=== PATIENT | female | born 1960 | race American Indian/Alaskan Native ===

== ENCOUNTER 2017-07-21 19:01 | Emergency (ER) | payer OTHER ==
[2017-07-21 19:08] VITALS: BP 156/87
== END 2017-07-21 23:53 | disposition left against medical advice (07) ==
LOC: ED 19:01
DX: R06.02 Shortness of breath (principal); R05 Cough; Z53.21 Procedure and treatment not carried out due to patient leaving prior to being seen by health care provider

== ENCOUNTER 2018-08-16 10:14 | Outpatient (CLI) | payer OTHER ==
[2018-08-16 10:47] LABS: Basophils # (Auto) 0.1 K/mm3 (0.0-0.1); Basophils % (Auto) 1.2 % (0.0-1.8); Eosinophils # (Auto) 0.1 K/mm3 (0.0-0.4); Eosinophils % (Auto) 1.5 % (0.0-4.3); Hematocrit 42.9 % (30.3-42.9); Lymphocytes # (Auto) 2.7 K/mm3 (1.2-5.4); Lymphocytes % (Auto) 42.9 % (13.4-35.0); Mean Corpuscular HGB Conc 33 % (30-34); Mean Corpuscular Volume 84 fl (79-97); Monocytes # (Auto) 0.5 K/mm3 (0.0-0.8); Monocytes % (Auto) 7.3 % (0.0-7.3); Platelet Count 306 K/mm3 (140-440); Red Blood Count 5.09 M/mm3 (3.65-5.03); Red Cell Distribution Width 16.2 % (13.2-15.2)
[2018-08-16 11:11] LABS: Alanine Aminotransferase 11 units/L (7-56); Albumin 3.7 g/dL (3.9-5); BUN/Creatinine Ratio 14; Blood Urea Nitrogen 14 mg/dL (7-17); Calcium 9.6 mg/dL (8.4-10.2); Hemolysis Index 6
[2018-08-16 11:33] LABS: Bacteria,Urine 4+ /HPF (Negative); Hyaline Casts,Urine 21 /LPF
[2018-08-16 11:38] LABS: RBC,Urine > 182.0 /HPF (0.0-6.0)
[2018-08-16 11:39] LABS: WBC,Urine > 182.0 /HPF (0.0-6.0)
[2018-08-16 11:58] LABS: Color,Urine Yellow (Yellow)
[2018-08-16 11:59] LABS: Bilirubin,Urine Negative (Negative); Blood,Urine SM (Negative); Protein,Urine >500 mg/dL (Negative); Urobilinogen,Urine < 2.0 mg/dL (<2.0)
== END 2018-08-16 10:15 | disposition home or self-care (01) ==
LOC: LAB 10:14
PROVIDERS: ATTEND Internal Medicine
DX: K85.00 Idiopathic acute pancreatitis without necrosis or infection (principal); N39.0 Urinary tract infection, site not specified; E78.00 Pure hypercholesterolemia, unspecified; I10 Essential (primary) hypertension; Z90.710 Acquired absence of both cervix and uterus
CPT/HCPCS: 36415; 80053; 81001; 82150; 83690; 85025

== ENCOUNTER 2018-08-16 13:53 | Emergency (ER) | payer OTHER ==
--- NOTE | 2018-08-16 14:17 | Event Note ---
ED Screening Note Date of service: 08/16/18 Time: 14:13 ED Screening Note: 58 y/o female seen by her PCP for abd pain since thursday Sent to er for addmission for pancreatic lipase 112 on out patient labs. This initial assessment/diagnostic orders/clinical plan/treatment(s) is/are subject to change based on patients health status, clinical progression and re- assessment by fellow clinical providers in the ED. Further treatment and workup at subsequent clinical providers discretion. Patient/guardian urged not to elope from the ED as their condition may be serious if not clinically assessed and managed. Initial orders include:
[2018-08-16] MEDS ORDERED: NACL 0.9% 1000 ML 1,000 ML IV ONE (16:14)
[2018-08-16] MEDS ORDERED: TORADOL IV ONE (16:14)
[2018-08-16] MEDS ORDERED: BENTYL IM ONE ×2 (16:14→17:07)
[2018-08-16] MEDS ORDERED: ZOFRAN IV ONE (16:14)
[2018-08-16] MEDS ORDERED: PEPCID IV ONE (16:14)
--- NOTE | 2018-08-16 16:46 | Emergency Department Report ---
<MEREDITH FALCON - Last Filed: 08/16/18 16:42> ED N/V/D HPI - General Chief complaint: Abdominal Pain Stated complaint: ABD PAIN Time Seen by Provider: 08/16/18 16:13 Source: patient Mode of arrival: Ambulatory Limitations: No Limitations - History of Present Illness Initial comments: Patient is a 58-year-old female who is presenting with 5 days of nausea vomiting and epigastric discomfort. Patient was sent from Dr. Shine's office to be evaluated. Patient states that since last Thursday she's been unable to keep anything down except for above post ache which about hour later she did vomit. Patient states the epigastric pain as a 10 out of 10 in severity at its worst. There is no radiation. She denies any diarrhea cough, congestion and sore throat or neck stiffness. Pain is crampy and burning. Dr. Shine's office today she had ultrasound to rule out biliary colic and it was unremarkable. Her laboratory studies that were done at the office show that she had a white blood cell count of 6.3 hemoglobin of 14 platelet count of 306 her chemistries were relatively unremarkable except for glucose of 231. Patient is diabetic. Lipase was 112 which was a nonspecific slight elevation of the lipase. Bilirubin and transaminases were normal - Related Data Home Medications Medication Instructions Recorded Confirmed Last Taken Albuterol Sulfate [Proair 90 mcg IH BID PRN 10/30/17 10/30/17 Unknown Respiclick] Aspirin [Adult Low Dose Aspirin EC] 1 tab PO QDAY 10/30/17 10/30/17 10/29/17 Exenatide Microspheres [Bydureon 2 mg SUB-Q QWEEK 10/30/17 10/30/17 10/26/17 Pen] Furosemide [Lasix TAB] 40 mg PO QDAY 10/30/17 10/30/17 10/29/17 Lisinopril 20 mg PO QDAY 10/30/17 10/30/17 10/29/17 Previous Rx's Medication Instructions Recorded Last Taken Type Dicyclomine [Bentyl] 20 mg PO QID PRN #20 tablet 08/16/18 Unknown Rx Famotidine [Pepcid] 20 mg PO BID #60 tablet 08/16/18 Unknown Rx Nitrofurantoin [place]/M-Cryst 100 mg PO Q12HR 5 Days #10 capsule 08/16/18 Unknown Rx [Macrobid CAP] Ondansetron [Zofran Odt] 4 mg PO Q8HR PRN #14 tab.rapdis 08/16/18 Unknown Rx Sucralfate [Carafate] 1 gm PO Q6HR #5 tablet 08/16/18 Unknown Rx Allergies Allergy/AdvReac Type Severity Reaction Status Date / Time oxycodone Allergy Itching Verified 08/16/18 13:54 ED Review of Systems Comment: All other systems reviewed and negative ED Past Medical Hx - Past Medical History Hx Hypertension: Yes Hx Diabetes: Yes (type 2) - Surgical History Additional Surgical History: left shoulder , right foot , Hysterectomy, C- section x 1 - Social History Smoking Status: Never Smoker Substance Use Type: None - Medications Home Medications: Home Medications Medication Instructions Recorded Confirmed Last Taken Type Albuterol Sulfate [Proair 90 mcg IH BID PRN 10/30/17 10/30/17 Unknown History Respiclick] Aspirin [Adult Low Dose Aspirin EC] 1 tab PO QDAY 10/30/17 10/30/17 10/29/17 History Exenatide Microspheres [Bydureon 2 mg SUB-Q QWEEK 10/30/17 10/30/17 10/26/17 History Pen] Furosemide [Lasix TAB] 40 mg PO QDAY 10/30/17 10/30/17 10/29/17 History Lisinopril 20 mg PO QDAY 10/30/17 10/30/17 10/29/17 History Dicyclomine [Bentyl] 20 mg PO QID PRN #20 tablet 08/16/18 Unknown Rx Famotidine [Pepcid] 20 mg PO BID #60 tablet 08/16/18 Unknown Rx Nitrofurantoin [place]/M-Cryst 100 mg PO Q12HR 5 Days #10 capsule 08/16/18 Unknown Rx [Macrobid CAP] Ondansetron [Zofran Odt] 4 mg PO Q8HR PRN #14 tab.rapdis 08/16/18 Unknown Rx Sucralfate [Carafate] 1 gm PO Q6HR #5 tablet 08/16/18 Unknown Rx ED Physical Exam - General Limitations: No Limitations General appearance: alert, in no apparent distress - Head Head exam: Present: atraumatic, normocephalic - Eye Eye exam: Present: normal appearance, PERRL, EOMI - ENT ENT exam: Present: mucous membranes moist - Neck Neck exam: Present: normal inspection - Respiratory Respiratory exam: Present: normal lung sounds bilaterally. Absent: respiratory distress, wheezes, rales, rhonchi - Cardiovascular Cardiovascular Exam: Present: regular rate, normal rhythm. Absent: systolic murmur, diastolic murmur, rubs, gallop - GI/Abdominal GI/Abdominal exam: Present: soft, tenderness (patient with pain on palpation in epigastrium. She did show some very mild guarding when palpating this region only.), guarding, normal bowel sounds. Absent: distended, rebound, rigid - Extremities Exam Extremities exam: Present: normal inspection - Back Exam Back exam: Present: normal inspection - Neurological Exam Neurological exam: Present: alert, oriented X3 - Psychiatric Psychiatric exam: Present: normal affect, normal mood - Skin Skin exam: Present: warm, dry, intact, normal color. Absent: rash ED Disposition Clinical Impression: Abdominal pain Qualifiers: Abdominal location: epigastric Qualified Code(s): R10.13 - Epigastric pain Nausea & vomiting Qualifiers: Vomiting type: unspecified Vomiting Intractability: non-intractable Qualified Code(s): R11.2 - Nausea with vomiting, unspecified Disposition: DC- TO HOME OR SELFCARE Condition: Stable Instructions: Acute Nausea and Vomiting (ED), Abdominal Pain (ED) Additional Instructions: Please see medication as prescribed. Please drink plenty of fluids. Please follow up with your primary care doctor in the next 2-3 days. Return to the emergency room for any new or worsening symptoms. Prescriptions: Dicyclomine [Bentyl] 20 mg PO QID PRN #20 tablet PRN Reason: pain Sucralfate [Carafate] 1 gm PO Q6HR #5 tablet Nitrofurantoin [place]/M-Cryst [Macrobid CAP] 100 mg PO Q12HR 5 Days #10 capsule Famotidine [Pepcid] 20 mg PO BID #60 tablet Ondansetron [Zofran Odt] 4 mg PO Q8HR PRN #14 tab.rapdis PRN Reason: Nausea And Vomiting Referrals: Deangelo BARBA MD [Staff Physician] - 2-3 Days Forms: Accompanied Note, Work/School Release Form(ED) Print Language: ARMENIAN <LINN YUENAmmy - Last Filed: 08/17/18 05:09> ED Review of Systems ROS: Stated complaint: ABD PAIN Other details as noted in HPI ED Course Vital Signs 08/16/18 08/16/18 08/16/18 14:13 16:53 21:14 Temperature 98.1 F 97.5 F L Pulse Rate 98 H 78 Respiratory 18 18 18 Rate Blood Pressure 165/79 Blood Pressure 146/80 [Left] O2 Sat by Pulse 98 94 Oximetry - Reevaluation(s) Reevaluation #1: 08/16/18 20:35 pt has had no further episodes of N/V while in the ER, her abdominal discomfort completely resolved - Consultations Consultation #1: 08/16/18 8:[address] Villanueva, hospitalist regarding pt lab work, UA, US, and CT, advised that pt does not meet admission criteria. ED Medical Decision Making - Radiology Data Radiology results: report reviewed CT abd pelvis with IV contrast with no acute abnormality - Medical Decision Making Patient is a 58-year-old female who is presenting with 5 days of nausea vomiting and epigastric discomfort. Patient was sent from Dr. Shine's office to be evaluated. Patient states that since last Thursday she's been unable to keep anything down except for above post ache which about hour later she did vomit. Patient states the epigastric pain as a 10 out of 10 in severity at its worst. There is no radiation. She denies any diarrhea cough, congestion and sore throat or neck stiffness. Pain is crampy and burning. Dr. Shine's office today she had ultrasound to rule out biliary colic and it was unremarkable. Her laboratory studies that were done at the office show that she had a white blood cell count of 6.3 hemoglobin of 14 plate let count of 306 her chemistries were relatively unremarkable except for glucose of 231. Patient is diabetic. Lipase was 112 which was a nonspecific slight elevation of the lipase. Bilirubin and transaminases were normal. Patient states after medications her pain has completely resolved. patient is up and walking around the emergency department. Patient has had no further episodes of emesis while in the emergency department. She is tolerating by mouth intake in the emergency department. CT of the abdomen and pelvis with no acute process. vitals are normal. Mildly elevated lipase from blood work from PCP office. No signs of gallstones. Patient states she does not drink alcohol. Spoke with Dr. Villanueva regarding patient results he states she does not meet admission criteria. UA shows evidence of UTI. Patient given ceftriaxone injection. Also sent home with Macrobid. Patient given Bentyl, Pepcid, Zofran, Carafate. Advised to take medications as prescribed. Drink plenty of fluids. Follow-up with primary care doctor in the next 2-3 days. Return to the emergency room for any new or worsening symptoms. - Differential Diagnosis pancreatitis, SBO, constipation, GERD, gastritis, PUD, gallstones Critical care attestation.: If time is entered above; I have spent that time in minutes in the direct care of this critically ill patient, excluding procedure time. ED Disposition Is pt being admited?: No Does the pt Need Aspirin: No Time of Disposition: 20:36
[2018-08-16 18:25] LABS: Bilirubin,Urine SM (Negative); Blood,Urine NEG (Negative); Color,Urine Amber (Yellow); Mucus,Urine 3+ /HPF; Urobilinogen,Urine < 2.0 mg/dL (<2.0)
[2018-08-16 18:26] LABS: Protein,Urine >500 mg/dL (Negative); WBC,Urine > 182.0 /HPF (0.0-6.0)
[2018-08-16 18:33] LABS: Ictotest,Urine Negative (Negative)
--- NOTE | 2018-08-16 19:57 | Cat Scan Report ---
PROCEDURE: CT ABDOMEN PELVIS W CON TECHNIQUE: Computerized axial tomography of the abdomen and pelvis was performed after the administr ation of IV iodinated nonionic contrast. CT DOSE LENGTH PRODUCT: 3094.6 mGycm HISTORY: epigastric pain COMPARISONS: None . FINDINGS: Visualized lower thorax: No significant abnormality. Liver: Normal size and attenuation. Spleen: Normal size and attenuation. Gallbladder and biliary system: Normal. Pancreas: Normal. Adrenals: Normal. Kidneys: Normal. GI tract: Normal. The appendix is identified and is unremarkable. Lymph nodes and mesentery: Normal. Vasculature:. Aortic and iliac Atherosclerotic vascular calcifications are noted. Bladder: Normal. Reproductive organs: Normal. Peritoneum: No free fluid. Musculoskeletal structures: No significant abnormality. Other: None. IMPRESSION: No acute abnormality identified This document is electronically signed by Braxton Morales MD., August 16 2018 07:54:47 PM ET
[2018-08-16] MEDS ORDERED: ROCEPHIN IM ONE (20:28)
[2018-08-16] MEDS ORDERED: XYLOCAINE 1% MPF 5 mL INFILTRATI ONE (20:28)
[2018-08-16 21:15] VITALS: BP 146/80
== END 2018-08-16 21:15 | disposition home or self-care (01) ==
LOC: ED 13:53
DX: R11.2 Nausea with vomiting, unspecified (principal); R10.13 Epigastric pain; I10 Essential (primary) hypertension; E11.9 Type 2 diabetes mellitus without complications; Z90.710 Acquired absence of both cervix and uterus; Z79.899 Other long term (current) drug therapy; Z88.6 Allergy status to analgesic agent
CPT/HCPCS: 74177; 81001; 96361; 96372; 96374; 96375; 99284; J0500; J0696; J1885; J2405; J7030; Q9967; 36415; 80053; 82150; 83690; 85025

== ENCOUNTER 2020-07-03 22:49 | Emergency (ER) | payer OTHER ==
[2020-07-03 23:15] VITALS: BP 179/88
[2020-07-03] MEDS ORDERED: ASPIRIN 325 MG TAB PO ONE (23:34)
[2020-07-03 23:55] LABS: Basophils # (Auto) 0.1 K/mm3 (0.0-0.1); Basophils % (Auto) 0.6 % (0.0-1.8); Eosinophils # (Auto) 0.2 K/mm3 (0.0-0.4); Eosinophils % (Auto) 1.9 % (0.0-4.3); Hematocrit 38.4 % (30.3-42.9); Hemoglobin 12.8 gm/dl (10.1-14.3); Lymphocytes # (Auto) 3.9 K/mm3 (1.2-5.4); Mean Corpuscular HGB Conc 33 % (30-34); Mean Corpuscular Volume 86 fl (79-97); Monocytes # (Auto) 0.7 K/mm3 (0.0-0.8); Monocytes % (Auto) 7.3 % (0.0-7.3); Platelet Count 341 K/mm3 (140-440); Red Blood Count 4.46 M/mm3 (3.65-5.03); Red Cell Distribution Width 15.8 % (13.2-15.2)
--- NOTE | 2020-07-04 00:04 | XRay Report ---
CHEST 2 VIEWS INDICATION: chest pain. COMPARISON: 03/24/2011. FINDINGS: Support devices: None. Heart: Within normal limits. Lungs/Pleura: No acute air space or interstitial disease. No significant pleural effusion. IMPRESSION: No acute findings. Signer Name: Philipp Beck MD Signed: 07/03/2020 11:59 PM Workstation Name: [id number]
[2020-07-04 00:22] LABS: Calcium 9.6 mg/dL (8.4-10.2)
--- NOTE | 2020-07-05 11:54 | Electrocardiograph Report ---
[facility] Test Date: 2020-07-03 Test Time: 23:21:40 Pat Name: RODY AGUILAR Department: Room: Gender: F Advisory Software Engineer: CAM : [id number] Requested By: GLEN JARRETT Order Number: [id number] Reading MD: Tyler Sanderson Measurements Intervals [place] Rate: 90 P: 67 MO: 156 QRS: 45 QRSD: 91 T: 100 QT: 410 QTc: 502 Interpretive Statements Sinus rhythm Probable left atrial enlargement No previous ECG available for comparison Electronically Signed On 07-05-2020 11:54:14 EDT by Tyler Sanderson
== END 2020-07-04 01:16 | disposition left against medical advice (07) ==
LOC: ED 22:49
DX: R07.89 Other chest pain (principal); Z53.21 Procedure and treatment not carried out due to patient leaving prior to being seen by health care provider
CPT/HCPCS: 36415; 71046; 80053; 84484; 85025; 93005

== ENCOUNTER 2021-11-06 05:46 | Inpatient (IN) | payer SELFPAY ==
[2021-11-06] MEDS ORDERED: ALBUTEROL 2.5 MG/3 ML NEBU IH ONE (07:28)
[2021-11-06] MEDS ORDERED: IPRATROPIUM 0.02% NEBU 2.5 ML IH ONE (07:28)
--- NOTE | 2021-11-06 07:39 | Emergency Department Report ---
HPI - General Chief Complaint: Dyspnea/Respdistress Time Seen by Provider: 11/06/21 07:15 - HPI HPI: Room 21 The patient is a 61-year-old female present with a chief complaint of shortness of breath. Patient states for the past 3 weeks she is felt short of breath. Patient states the same time she has had bilateral lower extremity left greater than right as well as a cough productive of clear sputum and rhinorrhea. Patient states she has been vaccinated against COVID receiving 3 Pfizer vaccines. Patient admits to orthopnea. The patient states she was placed on Lasix for swelling in her lower extremities but does not believe she was diagnosed with CHF. The patient states for the past 2 years she would only take it every other day secondary to the frequent urination. The patient states she contacted her physician 3 weeks ago and began taking the medication daily as prescribed but has not helped her symptoms. ED Past Medical Hx - Past Medical History Previous Medical History?: Yes Hx Hypertension: Yes Hx Diabetes: Yes (type 2) - Surgical History Past Surgical History?: Yes Hx Coronary Stent: Yes Additional Surgical History: left shoulder , right foot , Hysterectomy, C- section x 1 - Family History Family history: no significant - Social History Smoking Status: Current Every Day Smoker (1 pack/day) Substance Use Type: None (Denies illicit drug use), Alcohol (Rarely) - Medications Home Medications: Home Medications Medication Instructions Recorded Confirmed Last Taken Type Albuterol Sulfate [Proair 90 mcg IH BID PRN 10/30/17 10/30/17 Unknown History Respiclick] Aspirin [Adult Low Dose Aspirin EC] 1 tab PO QDAY 10/30/17 10/30/17 10/29/17 History Exenatide Microspheres [Bydureon 2 mg SUB-Q QWEEK 10/30/17 10/30/17 10/26/17 History Pen] Furosemide [Lasix TAB] 40 mg PO QDAY 10/30/17 10/30/17 10/29/17 History lisinopriL [Lisinopril] 20 mg PO QDAY 10/30/17 10/30/17 10/29/17 History Dicyclomine [Bentyl] 20 mg PO QID PRN #20 tablet 08/16/18 Unknown Rx Famotidine [Pepcid] 20 mg PO BID #60 tablet 08/16/18 Unknown Rx Nitrofurantoin [place]/M-Cryst 100 mg PO Q12HR 5 Days #10 capsule 08/16/18 Unknown Rx [Macrobid CAP] Ondansetron [Zofran Odt] 4 mg PO Q8HR PRN #14 tab.rapdis 08/16/18 Unknown Rx Sucralfate [Carafate] 1 gm PO Q6HR #5 tablet 08/16/18 Unknown Rx ED Review of Systems ROS: Stated complaint: SOB/FATIGUE Other details as noted in HPI Constitutional: denies: fever Eyes: denies: eye pain ENT: other (Rhinorrhea). denies: throat pain Respiratory: orthopnea, shortness of breath Cardiovascular: orthopnea. denies: chest pain Endocrine: no symptoms reported Gastrointestinal: denies: abdominal pain Genitourinary: denies: dysuria Musculoskeletal: denies: back pain Neurological: denies: headache Physical Exam - Physical Exam Vital Signs: Vital Signs 11/06/21 06:07 Temperature 98.3 F Pulse Rate 93 H Respiratory 16 Rate Blood Pressure 184/109 Blood Pressure 184/109 [Right] O2 Sat by Pulse 93 Oximetry Physical Exam: GENERAL: The patient is well-developed well-nourished female lying on stretcher not appearing to be in acute distress. [] HEENT: Normocephalic. Atraumatic. Extraocular motions are intact. Patient has moist mucous membranes. NECK: Supple. Trachea midline CHEST/LUNGS: Wheezing diffusely. There is no respiratory distress noted. HEART/CARDIOVASCULAR: Regular. There is no tachycardia. There is no gallop rub or murmur. ABDOMEN: Abdomen is soft, nontender. Patient has normal bowel sounds. There is no abdominal distention. SKIN: There is no rash. There is trace right lower extremity pitting edema and 1+ left lower extremity pitting edema. There is no diaphoresis. NEURO: The patient is awake, alert, and oriented. The patient is cooperative. The patient has no focal neurologic deficits. The patient has normal speech. GCS 15 MUSCULOSKELETAL: There is no evidence of acute injury. ED Course Vital Signs 11/06/21 06:07 Temperature 98.3 F Pulse Rate 93 H Respiratory 16 Rate Blood Pressure 184/109 Blood Pressure 184/109 [Right] O2 Sat by Pulse 93 Oximetry ED Medical Decision Making - Lab Data Result diagrams: 11/06/21 07:44 11/06/21 07:44 Laboratory Tests 11/06/21 11/06/21 07:44 07:44 WBC 6.8 RBC 4.24 Hgb 11.6 Hct 37.0 MCV 87 MCH 27 L MCHC 31 RDW 18.0 H Plt Count 307 Lymph % (Auto) 24.6 [place] % (Auto) 5.9 Eos % (Auto) 1.2 Baso % (Auto) 1.3 Lymph # (Auto) 1.7 [place] # (Auto) 0.4 Eos # (Auto) 0.1 Baso # (Auto) 0.1 Seg Neutrophils % 67.0 Seg Neutrophils # 4.5 Sodium 138 Potassium 4.3 Chloride 104.4 Carbon Dioxide 17 L Anion Gap 21 BUN 20 H Creatinine 1.7 H Estimated GFR 37 BUN/Creatinine Ratio 12 Glucose 166 H Calcium 8.8 Total Creatine Kinase 164 H CK-MB (CK-2) 3.9 CK-MB (CK-2) Rel Index 2.3 Troponin T < 0.010 NT-Pro-B Natriuret Pep 02487 H - EKG Data -: EKG Interpreted by Me EKG shows normal: sinus rhythm Rate: normal - EKG Data When compared to previous EKG there are: previous EKG unavailable Interpretation: nonspecific ST-T wave salvador (T wave inversions in leads I and aVL) - Radiology Data Radiology results: report reviewed (Chest x-ray), image reviewed (Chest x-ray) interpreted by me: Chest x-ray-CHF, cephalization. Bilateral lower lung zone haziness. No pneumothorax [address] [address] XRay Report Signed Patient: RODY AGUILAR MR#: [id number] : 1960 Acct:[id number] Age/Sex: 61 / F ADM Date: 11/06/21 Loc: ED Attending Dr: Ordering Physician: BANDAR PAINTING MD Date of Service: 11/06/21 Procedure(s): XR chest 1V ap Accession Number(s): [id number] cc: BANDAR PAINTING MD Fluoro Time In Minutes: CHEST 1 VIEW 11/06/2021 7:38 AM INDICATION / CLINICAL INFORMATION: Shortness of breath, cough. COMPARISON: 07/03/2020 FINDINGS: SUPPORT DEVICES: None. HEART / MEDIASTINUM: No significant abnormality. LUNGS / PLEURA: No significant pulmonary or pleural abnormality. No pneumothorax. ADDITIONAL FINDINGS: No significant additional findings. IMPRESSION: 1. No acute findings. Signer Name: Markus Garcia MD Signed: 11/06/2021 8:04 AM Workstation Name: [id number] Transcribed By: IRAIDA Dictated By: Markus Garcia MD Electronically Authenticated By: Markus Garcia MD Signed Date/Time: 11/06/21803 DD/ 3 TD/TT: - Differential Diagnosis CHF exacerbation, bronchitis, pneumonia, reactive airway disease Critical care attestation.: If time is entered above; I have spent that time in minutes in the direct care of this critically ill patient, excluding procedure time. ED Disposition Clinical Impression: CHF (congestive heart failure), Shortness of breath Disposition: ADMITTED INPATIENT Is pt being admited?: Yes Does the pt Need Aspirin: Yes Condition: Fair Time of Disposition: 10:09 (Care transferred to hospitalist Dr Lewis (discussed with Dr. Singh)) Heart Score - HEART Score History: Slightly suspicious EKG: Non-specific Age: 45-65 Risk factors: 1-2 risk factors Troponin: < normal limit HEART Score: 3 - EKG Read Time Time EKG Completed: 06:09 EKG Read Time: 10:08
[2021-11-06] MEDS ORDERED: cloNIDine 0.1 MG TAB PO ONE (07:43)
--- NOTE | 2021-11-06 08:08 | XRay Report ---
CHEST 1 VIEW 11/06/2021 7:38 AM INDICATION / CLINICAL INFORMATION: Shortness of breath, cough. COMPARISON: 07/03/2020 FINDINGS: SUPPORT DEVICES: None. HEART / MEDIASTINUM: No significant abnormality. LUNGS / PLEURA: No significant pulmonary or pleural abnormality. No pneumothorax. ADDITIONAL FINDINGS: No significant additional findings. IMPRESSION: 1. No acute findings. Signer Name: Markus Garcia MD Signed: 11/06/2021 8:04 AM Workstation Name: [id number]
[2021-11-06 08:28] LABS: Basophils # (Auto) 0.1 K/mm3 (0.0-0.1); Basophils % (Auto) 1.3 % (0.0-1.8); Eosinophils # (Auto) 0.1 K/mm3 (0.0-0.4); Eosinophils % (Auto) 1.2 % (0.0-4.3); Hemoglobin 11.6 gm/dl (10.1-14.3); Lymphocytes # (Auto) 1.7 K/mm3 (1.2-5.4); Lymphocytes % (Auto) 24.6 % (13.4-35.0); Mean Corpuscular HGB Conc 31 % (30-34); Mean Corpuscular Volume 87 fl (79-97); Monocytes # (Auto) 0.4 K/mm3 (0.0-0.8); Monocytes % (Auto) 5.9 % (0.0-7.3); Platelet Count 307 K/mm3 (140-440); Red Blood Count 4.24 M/mm3 (3.65-5.03)
[2021-11-06 08:43] LABS: Creatine Kinase MB 3.9 ng/mL (0.0-4.0)
[2021-11-06 08:47] LABS: BUN/Creatinine Ratio 12; Blood Urea Nitrogen 20 mg/dL (7-17); Calcium 8.8 mg/dL (8.4-10.2); Hemolysis Index 40
[2021-11-06] MEDS ORDERED: FUROSEMIDE 40 MG/4 ML INJ IV ONE (10:06)
[2021-11-06] MEDS ORDERED: MORPHINE 2 MG/1 ML INJ IV PRN (11:47)
[2021-11-06] MEDS ORDERED: ONDANSETRON 4 MG/2 ML INJ IV PRN ×2 (11:47→14:00)
[2021-11-06] MEDS ORDERED: ACETAMINOPHEN 325 MG TAB PO PRN (11:47)
[2021-11-06] MEDS ORDERED: oxyCODONE /ACETAMINOPHEN 5-325MG TAB PO PRN (12:56)
[2021-11-06] MEDS ORDERED: SODIUM BICARB 8.4% 50 MEQ/50 ML SYRINGE IV SCH (13:00)
--- NOTE | 2021-11-06 13:00 | History and Physical Report ---
History of Present Illness Date of admission: 11/06/21 11:47 Chief complaint: I get short of breath very easily History of present illness: 61 YO Female with Obesity Hypoventilation Syndrome, Systolic CHF(EF 40%), CAD S/P Stent Placement, HLD, DM, HTN, Metabolic Syndrome, Nicotine Dependence presents to ED for evaluation. Patient reports "I get short of breath very easily". Patient states that over the past 3 weeks she has experienced shortness of breath, leg edema, decreased exercise tolerance, dyspnea on exertion, dyspnea at rest, orthopnea, paroxysmal nocturnal dyspnea, as well as 10 pound unintentional weight gain. Patient knowledges increasing dose of outpatient Lasix therapy without relief. As a result patient failed outpatient therapy. EMS was notified and upon arrival the patient was found to be in distress and subsequent transported to [facility] for further care and evaluation of the aforementioned symptoms. The patient was seen and evaluated in the emergency department. All lab and imaging studies reviewed. Patient found to have a pulse oximetry of 87% on room air which is consistent with acute hypoxemic respiratory failure. The patient was placed on submental oxygen with mild improvement in symptoms. Patient subsequently placed on noninvasive positive pressure ventilation. Patient found to have clinical symptoms consistent with CHF decompensation as well as accelerated hypertension, and cardiorenal syndrome, and metabolic acidosis. Patient admitted to telemetry and initiated on CHF protocol. Cardiology team consulted in ED. Patient denies fever, chills, chest pain, palpitation, productive cough, skin rash, recent contact, prolonged travel/immobility, unilateral leg swelling, calf pain, individual/family history of DVT/PE/bleeding/blood clotting disorders, or known exposure to COVID-19. No prior admission for review. All medication listed at time of admission has been reconciled. Advanced care planning conducted in ED. Past History Past Medical History: diabetes, heart failure, hypertension, hyperlipidemia Past Surgical History: , hysterectomy, Other (Cardiac stent surgery, foot surgery) Social history: , smoking Family history: diabetes, hypertension Medications and Allergies Allergies Allergy/AdvReac Type Severity Reaction Status Date / Time oxycodone Allergy Itching Verified 08/16/18 13:54 Home Medications Medication Instructions Recorded Confirmed Last Taken Type Albuterol Sulfate [Proair 90 mcg IH BID PRN 10/30/17 10/30/17 Unknown History Respiclick] Aspirin [Adult Low Dose Aspirin EC] 1 tab PO QDAY 10/30/17 10/30/17 10/29/17 History Exenatide Microspheres [Bydureon 2 mg SUB-Q QWEEK 10/30/17 10/30/17 10/26/17 History Pen] Furosemide [Lasix TAB] 40 mg PO QDAY 10/30/17 10/30/17 10/29/17 History lisinopriL [Lisinopril] 20 mg PO QDAY 10/30/17 10/30/17 10/29/17 History Dicyclomine [Bentyl] 20 mg PO QID PRN #20 tablet 08/16/18 Unknown Rx Famotidine [Pepcid] 20 mg PO BID #60 tablet 08/16/18 Unknown Rx Nitrofurantoin Mccracken/M-Cryst 100 mg PO Q12HR 5 Days #10 capsule 08/16/18 Unknown Rx [Macrobid CAP] Ondansetron [Zofran Odt] 4 mg PO Q8HR PRN #14 tab.rapdis 08/16/18 Unknown Rx Sucralfate [Carafate] 1 gm PO Q6HR #5 tablet 08/16/18 Unknown Rx Active Meds: Active Medications Acetaminophen (Acetaminophen 325 Mg Tab) 650 mg PO Q4H PRN PRN Reason: Pain MILD(1-3)/Fever >100.5/HURST Acetaminophen (Acetaminophen 325 Mg Tab) 650 mg PO Q4H PRN PRN Reason: Pain MILD(1-3)/Fever >100.5/HURST Albuterol (Albuterol 2.5 Mg/3 Ml Nebu) 2.5 mg IH Q4HRT PRN PRN Reason: Shortness Of Breath Aspirin (Aspirin Ec 81 Mg Tab) mg PO QDAY [facility] Dicyclomine HCl (Dicyclomine 20 Mg Tab) 20 mg PO QID PRN PRN Reason: pain Famotidine (Famotidine 20 Mg Tab) 20 mg PO BID [facility] Furosemide (Furosemide 20 Mg/2 Ml Inj) 20 mg IV BID@0600,1800 [facility] Hydromorphone HCl (Hydromorphone 0.5 Mg/0.5 Ml Inj) 0.5 mg IV Q13H PRN PRN Reason: Pain , Severe (7-10) Lisinopril (Lisinopril 10 Mg Tab) 10 mg PO QDAY [facility] Lisinopril (Lisinopril 10 Mg Tab) 10 mg PO QDAY [facility] Metoprolol Tartrate (Metoprolol Tartrate 25 Mg Tab) 25 mg PO BID [facility] Morphine Sulfate (Morphine 2 Mg/1 Ml Inj) 2 mg IV Q4H PRN PRN Reason: Pain, Moderate (4-6) Ondansetron HCl (Ondansetron 4 Mg/2 Ml Inj) 4 mg IV Q8H PRN PRN Reason: Nausea And Vomiting Ondansetron HCl (Ondansetron 4 Mg/2 Ml Inj) 4 mg IV Q8H PRN PRN Reason: Nausea And Vomiting Oxycodone/Acetaminophen (Oxycodone /Acetaminophen 5-325mg Tab) 1 tab PO Q6H PRN PRN Reason: Pain, Moderate (4-6) Sodium Bicarbonate (Sodium Bicarb 8.4% 50 Meq/50 Ml Syringe) 50 meq IV ONCE@1300 [facility] Stop: 11/06/21 17:00 Sodium Chloride (Sodium Chloride 0.9% 10 Ml Flush Syringe) 10 ml IV BID [facility] Sodium Chloride (Sodium Chloride 0.9% 10 Ml Flush Syringe) 10 ml IV PRN PRN PRN Reason: LINE FLUSH Sodium Chloride (Sodium Chloride 0.9% 10 Ml Flush Syringe) 10 ml IV BID [facility] Sodium Chloride (Sodium Chloride 0.9% 10 Ml Flush Syringe) 10 ml IV PRN PRN PRN Reason: LINE FLUSH Sucralfate (Sucralfate 1 Gm Tab) 1 gm PO Q6HR [facility] Review of Systems Constitutional: weight gain, no weight loss, no fever, no chills Ears, nose, mouth and throat: no ear pain, no ear discharge, no tinnitis, no nose pain, no nasal congestion Breasts: no change in shape, no swelling, no mass Cardiovascular: orthopnea, edema, shortness of breath, dyspnea on exertion, paroxysmal nocturnal dyspnea, high blood pressure, leg edema, decreased exercise tolerance, no chest pain Respiratory: no cough, no hemoptysis Gastrointestinal: no abdominal pain, no nausea, no vomiting, no diarrhea, no constipation Genitourinary Female: no pelvic pain, no flank pain, no dysuria, no urinary f requency, no urgency Rectal: no pain, no incontinence, no bleeding Musculoskeletal: no neck stiffness, no neck pain, no shooting arm pain, no arm numbness/tingling, no low back pain Integumentary: no rash, no pruritis, no redness, no sores, no wounds Neurological: no head injury, no transient paralysis, no weakness, no parathesias, no tingling, no seizures, no tremors, no ataxia Psychiatric: no anxiety, no memory loss, no sleep disturbances, no insomnia, no change in appetite, no change in libido, no suicidal ideation Endocrine: no cold intolerance, no polyphagia, no excessive thirst, no polydipsia, no nocturia Hematologic/Lymphatic: no easy bruising, no easy bleeding Allergic/Immunologic: no urticaria, no allergic rhinitis, no wheezing Exam - Constitutional Vitals: Temp Pulse Resp BP Pulse Ox 98.3 F 99 H 17 195/110 93 11/06/21 06:07 11/06/21 07:55 11/06/21 08:12 11/06/21 08:30 11/06/21 08:30 General appearance: Present: mild distress - EENT Eyes: Present: PERRL ENT: hearing intact - Neck Neck: Present: supple, normal ROM - Respiratory Respiratory effort: normal Respiratory: bilateral: diminished, rales - Cardiovascular Heart Sounds: Present: S1 & S2. Absent: rub, click - Extremities Extremities: no ischemia Peripheral Pulses: within normal limits - Abdominal General gastrointestinal: Present: soft, non-tender, non-distended, normal bowel sounds Female genitourinary: Present: normal - Integumentary Integumentary: Present: clear, dry - Musculoskeletal Musculoskeletal: generalized weakness - Psychiatric Psychiatric: cooperative - Neurologic Neurologic: CNII-XII intact HEART Score - HEART Score EKG: Non-specific Age: 45-65 Risk factors: 1-2 risk factors Troponin: Troponin T < 0.010 ng/mL (0.00-0.029) 11/06/21 07:44 Troponin: < normal limit Results - Labs CBC & Chem 7: 11/06/21 07:44 11/06/21 07:44 Labs: Abnormal lab results 11/06/21 11/06/21 Range/Units 07:44 07:44 MCH 27 L (28-32) pg RDW 18.0 H (13.2-15.2) % Carbon Dioxide 17 L (22-30) mmol/L BUN 20 H (7-17) mg/dL Creatinine 1.7 H (0.6-1.2) mg/dL Glucose 166 H (65-100) mg/dL Total Creatine Kinase 164 H (30-135) units/L NT-Pro-B Natriuret Pep 38962 H (0-900) pg/mL Assessment and Plan - Patient Problems (1) CHF (congestive heart failure) Current Visit: Yes Status: Acute Qualifiers: Heart failure type: systolic Heart failure chronicity: acute Qualified Code(s): I50.21 - Acute systolic (congestive) heart failure Plan to address problem: Strict I's/O, monitor urine output every shift, daily weight, afterload reduction, blood pressure control, thyroid panel, magnesium level, echocardiogram ordered and pending at time of admission. Cardiology team consulted. (2) Acute hypoxemic respiratory failure Current Visit: Yes Status: Acute Plan to address problem: Chest x-ray, supplemental oxygen, pulse oximetry, nebulizer therapy, noninvasive positive pressure ventilation as clinically indicated. (3) Cardiorenal syndrome Current Visit: Yes Status: Acute Qualifiers: Heart failure presence: with heart failure Plan to address problem: Nephrology team consulted, urine electrolytes, supportive care. (4) Metabolic acidosis Current Visit: Yes Status: Acute Plan to address problem: IV fluid resuscitation therapy, BMP, repeat BMP in a.m. (5) Accelerated hypertension Current Visit: Yes Status: Acute Plan to address problem: Monitor blood pressure every shift, continue medical management. (6) DVT prophylaxis Current Visit: Yes Status: Acute Plan to address problem: SCD to bilateral lower extremities while in bed (7) Advance care planning Current Visit: Yes Status: Acute Plan to address problem: Disease education conducted, care plan discussed, diagnoses discussed, prognosis discussed, patient is full code. Patient knowledges understanding and agreement with care plan, +30 minutes. (8) Preventative health care Current Visit: Yes Status: Acute Plan to address problem: Patient counseled on risk factor reduction, weight reduction, balanced diet, increase physical activity discharge, +30 minutes.
[2021-11-06] MEDS ORDERED: LISINOPRIL 10 MG TAB PO SCH (14:00)
[2021-11-06] MEDS ORDERED: HYDROmorphone 0.5 MG/0.5 ML INJ IV PRN (14:00)
[2021-11-06] MEDS ORDERED: DICYCLOMINE 20 MG TAB PO PRN (14:00)
[2021-11-06] MEDS: METOPROLOL TARTRATE 25 MG TAB PO SCH ×2 (14:32→21:06)
[2021-11-06] MEDS ORDERED: ALBUTEROL 2.5 MG/3 ML NEBU IH PRN (16:00)
[2021-11-06 16:32] LABS: Free T4 (Free Thyroxine) 1.25 ng/dL (0.76-1.46)
[2021-11-06] MEDS: FUROSEMIDE 20 MG/2 ML INJ IV SCH (19:07)
[2021-11-06] MEDS: SUCRALFATE 1 GM TAB PO SCH (19:07)
[2021-11-06] MEDS ORDERED: DEXTROSE 50% IN WATER (25GM) 50 ML SYRINGE IV PRN (20:14)
[2021-11-06] MEDS: INSULIN LISPRO 100 UNIT/ML SUB-Q SCH (21:06)
[2021-11-06] MEDS ORDERED: FAMOTIDINE 20 MG TAB PO SCH (22:00)
[2021-11-06] MEDS ORDERED: ALPRAZolam 0.25 MG TAB PO ONE (23:35)
[2021-11-06] MEDS: ACETAMINOPHEN 325 MG TAB PO PRN (23:51)
[2021-11-07] MEDS: SUCRALFATE 1 GM TAB PO SCH ×4 (00:02→17:22)
[2021-11-07] MEDS: FUROSEMIDE 20 MG/2 ML INJ IV SCH ×2 (06:00→17:25)
[2021-11-07 06:07] LABS: Calcium 8.5 mg/dL (8.4-10.2)
[2021-11-07] MEDS: INSULIN LISPRO 100 UNIT/ML SUB-Q SCH ×5 (07:07→23:02)
--- NOTE | 2021-11-07 08:15 | Consultation ---
History of Present Illness - Reason for Consult Consult date: 11/07/21 acute renal failure, chronic renal failure Past History Past Medical History: diabetes, heart failure, hypertension, hyperlipidemia Past Surgical History: , hysterectomy, Other (Cardiac stent surgery, foot surgery) Social history: , smoking Family history: diabetes, hypertension Medications and Allergies Allergies Allergy/AdvReac Type Severity Reaction Status Date / Time oxycodone Allergy Itching Verified 08/16/18 13:54 Home Medications Medication Instructions Recorded Confirmed Last Taken Type Aspirin [Adult Aspirin] 81 mg PO QDAY 11/06/21 11/06/21 Unknown History AtorvaSTATin [Lipitor] 80 mg PO QHS 11/06/21 11/06/21 Unknown History Clopidogrel [Plavix] 75 mg PO QDAY 11/06/21 11/06/21 Unknown History Furosemide [Lasix] 40 mg PO QDAY 11/06/21 11/06/21 Unknown History Hydralazine HCl 25 mg PO BID 11/06/21 11/06/21 Unknown History Isosorbide Mononitrate [Isosorbide 30 mg PO QDAY 11/06/21 11/06/21 Unknown History Mononitrate ER] carvediloL [Coreg] 3.125 mg PO BID 11/06/21 11/06/21 Unknown History Active Meds: Active Medications Acetaminophen (Acetaminophen 325 Mg Tab) 650 mg PO Q4H PRN PRN Reason: Pain MILD(1-3)/Fever >100.5/HURST Last Admin: 11/06/21 23:51 Dose: 650 mg Albuterol (Albuterol 2.5 Mg/3 Ml Nebu) 2.5 mg IH Q4HRT PRN PRN Reason: Shortness Of Breath Aspirin (Aspirin Ec 81 Mg Tab) 81 mg PO QDAY [facility] Dextrose (Dextrose 50% In Water (25gm) 50 Ml Syringe) 50 ml IV Q30MIN PRN; Protocol PRN Reason: Hypoglycemia Dicyclomine HCl (Dicyclomine 20 Mg Tab) 20 mg PO QID PRN PRN Reason: pain Famotidine (Famotidine 20 Mg Tab) 20 mg PO DAILY [facility] Furosemide (Furosemide 20 Mg/2 Ml Inj) 20 mg IV BID@0600,1800 [facility] Last Admin: 11/07/21 06:00 Dose: 20 mg Hydromorphone HCl (Hydromorphone 0.5 Mg/0.5 Ml Inj) 0.5 mg IV Q13H PRN PRN Reason: Pain , Severe (7-10) Insulin Human Lispro (Insulin Lispro 100 Unit/Ml) 0 unit SUB-Q ACHS [facility]; Protocol Last Admin: 11/07/21 07:07 Dose: Not Given Lisinopril (Lisinopril 10 Mg Tab) 10 mg PO QDAY [facility] Metoprolol Tartrate (Metoprolol Tartrate 25 Mg Tab) 25 mg PO BID [facility] Last Admin: 11/06/21 21:06 Dose: 25 mg Morphine Sulfate (Morphine 2 Mg/1 Ml Inj) 2 mg IV Q4H PRN PRN Reason: Pain, Moderate (4-6) Ondansetron HCl (Ondansetron 4 Mg/2 Ml Inj) 4 mg IV Q8H PRN PRN Reason: Nausea And Vomiting Sodium Chloride (Sodium Chloride 0.9% 10 Ml Flush Syringe) 10 ml IV BID [facility] Last Admin: 11/06/21 21:06 Dose: 10 ml Sodium Chloride (Sodium Chloride 0.9% 10 Ml Flush Syringe) 10 ml IV PRN PRN PRN Reason: LINE FLUSH Sucralfate (Sucralfate 1 Gm Tab) 1 gm PO Q6HR [facility] Last Admin: 11/07/21 06:00 Dose: Not Given Exam - Vital Signs Vital signs: Vital Signs Temp Pulse Resp BP Pulse Ox 98.3 F 93 H 16 184/109 93 11/06/21 06:07 11/06/21 06:07 11/06/21 06:07 11/06/21 06:07 11/06/21 06:07 Results - Lab Results 11/06/21 07:44 11/07/21 04:36 Most recent lab results Calcium 8.5 mg/dL (8.4-10.2) 11/07/21 04:36 Magnesium 1.60 mg/dL (1.7-2.3) L 11/06/21 14:38
--- NOTE | 2021-11-07 08:45 | Event Note ---
Date: 11/07/21 Patient followed by . Consult changed.
[2021-11-07] MEDS: METOPROLOL TARTRATE 25 MG TAB PO SCH ×2 (09:37→21:41)
--- NOTE | 2021-11-07 09:49 | Progress Note ---
Assessment and Plan Assessment and plan: 61 YO Female with Obesity Hypoventilation Syndrome, Systolic CHF(EF 40%), CAD S/P Stent Placement, HLD, DM, HTN, Metabolic Syndrome, Nicotine Dependence presents to ED for evaluation of shortness of breath, leg edema, decreased exercise tolerance, dyspnea on exertion, dyspnea at rest, orthopnea, paroxysmal nocturnal dyspnea, as well as 10 pound unintentional weight gain. Patient found to have a pulse oximetry of 87% on room air which is consistent with acute hypoxemic respiratory failure. The patient was admitted with diagnosis below: Acute hypoxic respiratory failure Acute systolic heart failure. EF 35-40%. Cardiorenal syndrome Acute on CKD Hypertensive urgency Hospital course: 11/07/2021. Echocardiogram reveals left ventricle mildly dilated with systolic function moderately decreased and LVEF 35-40%. Mild concentric left ventricular hypertrophy. Mild pulmonary hypertension with RVSP 40-45 mmHg. Patient's creatinine appears to be elevated to 2.0 up from baseline of 1.4 (06/2020). Continue beta-jason and diuresis. Nephrology and cardiology consulted History Interval history: No new issues overnight Hospitalist Physical - Constitutional Vitals: Temp Pulse Resp BP Pulse Ox 98.1 F 71 18 151/81 96 11/07/21 07:10 11/07/21 07:10 11/07/21 07:10 11/07/21 07:12 11/07/21 07:12 General appearance: Present: no acute distress - EENT Eyes: Present: PERRL, EOM intact ENT: hearing intact, clear oral mucosa, dentition normal - Neck Neck: Present: supple, normal ROM - Respiratory Respiratory effort: normal Respiratory: bilateral: CTA - Cardiovascular Rhythm: regular Heart Sounds: Present: S1 & S2. Absent: gallop, rub - Extremities Extremities: no ischemia, No edema, Full ROM - Abdominal General gastrointestinal: soft, non-tender, non-distended, normal bowel sounds - Integumentary Integumentary: Present: clear, warm, dry - Neurologic Neurologic: CNII-XII intact, moves all extremities HEART Score - HEART Score EKG: Non-specific Age: 45-65 Risk factors: 1-2 risk factors Troponin: Troponin T < 0.010 ng/mL (0.00-0.029) 11/06/21 07:44 Troponin: < normal limit Results - Labs CBC & Chem 7: 11/06/21 07:44 11/07/21 04:36 Labs: Laboratory Last Values WBC 6.8 K/mm3 (4.5-11.0) 11/06/21 07:44 RBC 4.24 M/mm3 (3.65-5.03) 11/06/21 07:44 Hgb 11.6 gm/dl (10.1-14.3) 11/06/21 07:44 Hct 37.0 % (30.3-42.9) 11/06/21 07:44 MCV 87 fl (79-97) 11/06/21 07:44 MCH 27 pg (28-32) L 11/06/21 07:44 MCHC 31 % (30-34) 11/06/21 07:44 RDW 18.0 % (13.2-15.2) H 11/06/21 07:44 Plt Count 307 K/mm3 (140-440) 11/06/21 07:44 Lymph % (Auto) 24.6 % (13.4-35.0) 11/06/21 07:44 [place] % (Auto) 5.9 % (0.0-7.3) 11/06/21 07:44 Eos % (Auto) 1.2 % (0.0-4.3) 11/06/21 07:44 Baso % (Auto) 1.3 % (0.0-1.8) 11/06/21 07:44 Lymph # (Auto) 1.7 K/mm3 (1.2-5.4) 11/06/21 07:44 [place] # (Auto) 0.4 K/mm3 (0.0-0.8) 11/06/21 07:44 Eos # (Auto) 0.1 K/mm3 (0.0-0.4) 11/06/21 07:44 Baso # (Auto) 0.1 K/mm3 (0.0-0.1) 11/06/21 07:44 Seg Neutrophils % 67.0 % (40.0-70.0) 11/06/21 07:44 Seg Neutrophils # 4.5 K/mm3 (1.8-7.7) 11/06/21 07:44 Sodium 136 mmol/L (137-145) L 11/07/21 04:36 Potassium 4.8 mmol/L (3.6-5.0) 11/07/21 04:36 Chloride 100.4 mmol/L (98-107) 11/07/21 04:36 Carbon Dioxide 21 mmol/L (22-30) L 11/07/21 04:36 Anion Gap 19 mmol/L 11/07/21 04:36 BUN 25 mg/dL (7-17) H 11/07/21 04:36 Creatinine 2.0 mg/dL (0.6-1.2) H 11/07/21 04:36 Estimated GFR 31 ml/min 11/07/21 04:36 BUN/Creatinine Ratio 13 % 11/07/21 04:36 Glucose 105 mg/dL (65-100) H 11/07/21 04:36 Calcium 8.5 mg/dL (8.4-10.2) 11/07/21 04:36 Magnesium 1.60 mg/dL (1.7-2.3) L 11/06/21 14:38 Total Creatine Kinase 164 units/L (30-135) H 11/06/21 07:44 CK-MB (CK-2) 3.9 ng/mL (0.0-4.0) 11/06/21 07:44 CK-MB (CK-2) Rel Index 2.3 (0-4) 11/06/21 07:44 Troponin T < 0.010 ng/mL (0.00-0.029) 11/06/21 07:44 NT-Pro-B Natriuret Pep 99084 pg/mL (0-900) H 11/06/21 07:44 TSH 1.370 mlU/mL (0.270-4.200) 11/06/21 14:38 Free T4 1.25 ng/dL (0.76-1.46) 11/06/21 14:38 Pyle/IV: Voiding Method Toilet Active Medications - Current Medications Current Medications: Generic Name Dose Route Start Last Admin Trade Name Freq PRN Reason Stop Dose Admin Acetaminophen 650 mg 11/06/21 14:00 11/06/21 23:51 Acetaminophen 325 Mg Tab PO 650 mg Q4H PRN Administration Pain MILD(1-3)/Fever >100.5/HURST Albuterol 2.5 mg 11/06/21 16:00 Albuterol 2.5 Mg/3 Ml Nebu IH Q4HRT PRN Shortness Of Breath Aspirin 81 mg 11/07/21 10:00 11/07/21 09:37 Aspirin Ec 81 Mg Tab PO 81 mg QDAY [facility] Administration Dextrose 50 ml 11/06/21 20:14 Dextrose 50% In Water (25gm) 50 Ml Syringe IV Q30MIN PRN Hypoglycemia Protocol Dicyclomine HCl 20 mg 11/06/21 14:00 Dicyclomine 20 Mg Tab PO QID PRN pain Famotidine 20 mg 11/07/21 10:00 11/07/21 09:37 Famotidine 20 Mg Tab PO 20 mg DAILY [facility] Administration Furosemide 20 mg 11/06/21 18:00 11/07/21 06:00 Furosemide 20 Mg/2 Ml Inj IV 20 mg BID@0600,1800 [facility] Administration Hydromorphone HCl 0.5 mg 11/06/21 14:00 Hydromorphone 0.5 Mg/0.5 Ml Inj IV Q13H PRN Pain , Severe (7-10) Insulin Human Lispro 0 unit 11/06/21 22:00 11/07/21 07:07 Insulin Lispro 100 Unit/Ml SUB-Q Not Given ACHS [facility] Protocol Lisinopril 10 mg 11/07/21 10:00 11/07/21 09:37 Lisinopril 10 Mg Tab PO Not Given QDAY [facility] Metoprolol Tartrate 25 mg 11/06/21 14:00 11/07/21 09:37 Metoprolol Tartrate 25 Mg Tab PO 25 mg BID [facility] Administration Morphine Sulfate 2 mg 11/06/21 11:47 Morphine 2 Mg/1 Ml Inj IV Q4H PRN Pain, Moderate (4-6) Ondansetron HCl 4 mg 11/06/21 14:00 Ondansetron 4 Mg/2 Ml Inj IV Q8H PRN Nausea And Vomiting Sodium Chloride 10 ml 11/06/21 22:00 11/07/21 09:38 Sodium Chloride 0.9% 10 Ml Flush Syringe IV 10 ml BID [facility] Administration Sodium Chloride 10 ml 11/06/21 14:00 Sodium Chloride 0.9% 10 Ml Flush Syringe IV PRN PRN LINE FLUSH Sucralfate 1 gm 11/06/21 18:00 11/07/21 06:00 Sucralfate 1 Gm Tab PO Not Given Q6HR [facility]
[2021-11-07] MEDS ORDERED: ASPIRIN EC 81 MG TAB PO SCH (10:00)
[2021-11-07] MEDS ORDERED: FAMOTIDINE 20 MG TAB PO SCH (10:00)
[2021-11-07] MEDS ORDERED: LISINOPRIL 10 MG TAB PO SCH (10:00)
--- NOTE | 2021-11-07 11:32 | Consultation ---
History of Present Illness Consult date: 11/07/21 Consult reason: congestive heart failure History of present illness: The patient is a 61-year-old woman with a history of coronary artery disease, ischemic cardiomyopathy, COPD and chronic tobacco abuse. With regards to her coronary artery disease, in October 2017 a cardiac catheterization at this hospital reported a chronic total occlusion of the distal right coronary artery, and moderate severity stenosis of the mid LAD. She states as a result of disc she underwent coronary stent placement at [facility]. The report of her interventional procedure is not available for review. Her left ventricular angiographic assessment in 2018 reported an ejection fraction of 40%. She presents to the hospital at this time with 3 weeks of increasing shortness of breath, lower extremity edema, and orthopnea. She states the result of orthopnea, she has not been sleeping well. She was seen in the emergency room, referred for admission and cardiac consultation requested. The patient describes no chest pain. She follows up with a chef french in the outpatient basis but is uncertain about any recent ischemic work-up. Work-up so far on this presentation: ECG was normal sinus rhythm with nonspecific intraventricular conduction delay, no acute ST or T wave abnormalities. Chest x-ray showed some haziness at the lung bases but no evidence of significant interstitial edema. Echocardiogram shows moderate sev erity left ventricular dysfunction with ejection fraction 35 to 40%. Another significant finding on this presentation is acute renal failure with an elevated creatinine of 2.0. The creatinine was normal in 2019. Past History Past Medical History: CAD, diabetes, heart failure, hypertension, hyperlipidemia Past Surgical History: , hysterectomy, PTCA Social history: , smoking Family history: diabetes, hypertension Medications and Allergies Allergies Allergy/AdvReac Type Severity Reaction Status Date / Time oxycodone Allergy Itching Verified 11/07/21 11:07 Home Medications Medication Instructions Recorded Confirmed Last Taken Type Aspirin [Adult Aspirin] 81 mg PO QDAY 11/06/21 11/06/21 Unknown History AtorvaSTATin [Lipitor] 80 mg PO QHS 11/06/21 11/06/21 Unknown History Clopidogrel [Plavix] 75 mg PO QDAY 11/06/21 11/06/21 Unknown History Furosemide [Lasix] 40 mg PO QDAY 11/06/21 11/06/21 Unknown History Hydralazine HCl 25 mg PO BID 11/06/21 11/06/21 Unknown History Isosorbide Mononitrate [Isosorbide 30 mg PO QDAY 11/06/21 11/06/21 Unknown History Mononitrate ER] carvediloL [Coreg] 3.125 mg PO BID 11/06/21 11/06/21 Unknown History Active Meds: Active Medications Acetaminophen (Acetaminophen 325 Mg Tab) 650 mg PO Q4H PRN PRN Reason: Pain MILD(1-3)/Fever >100.5/HURST Last Admin: 11/06/21 23:51 Dose: 650 mg Albuterol (Albuterol 2.5 Mg/3 Ml Nebu) 2.5 mg IH Q4HRT PRN PRN Reason: Shortness Of Breath Aspirin (Aspirin Ec 81 Mg Tab) 81 mg PO QDAY [facility] [place] Last Admin: 11/07/21 09:37 Dose: 81 mg Dextrose (Dextrose 50% In Water (25gm) 50 Ml Syringe) 50 ml IV Q30MIN PRN; Protocol PRN Reason: Hypoglycemia Dicyclomine HCl (Dicyclomine 20 Mg Tab) 20 mg PO QID PRN PRN Reason: pain Famotidine (Famotidine 20 Mg Tab) 20 mg PO DAILY [facility] [place] Last Admin: 11/07/21 09:37 Dose: 20 mg Furosemide (Furosemide 20 Mg/2 Ml Inj) 20 mg IV BID@0600,1800 [facility] [place] Last Admin: 11/07/21 06:00 Dose: 20 mg Hydromorphone HCl (Hydromorphone 0.5 Mg/0.5 Ml Inj) 0.5 mg IV Q13H PRN PRN Reason: Pain , Severe (7-10) Insulin Human Lispro (Insulin Lispro 100 Unit/Ml) 0 unit SUB-Q ACHS [facility] [place]; Protocol Last Admin: 11/07/21 11:12 Dose: Not Given Lisinopril (Lisinopril 10 Mg Tab) 10 mg PO QDAY [facility] [place] Last Admin: 11/07/21 09:37 Dose: Not Given Metoprolol Tartrate (Metoprolol Tartrate 25 Mg Tab) 25 mg PO BID [facility] [place] Last Admin: 11/07/21 09:37 Dose: 25 mg Morphine Sulfate (Morphine 2 Mg/1 Ml Inj) 2 mg IV Q4H PRN PRN Reason: Pain, Moderate (4-6) Ondansetron HCl (Ondansetron 4 Mg/2 Ml Inj) 4 mg IV Q8H PRN PRN Reason: Nausea And Vomiting Sodium Chloride (Sodium Chloride 0.9% 10 Ml Flush Syringe) 10 ml IV BID [facility] Last Admin: 11/07/21 09:38 Dose: 10 ml Sodium Chloride (Sodium Chloride 0.9% 10 Ml Flush Syringe) 10 ml IV PRN PRN PRN Reason: LINE FLUSH Sucralfate (Sucralfate 1 Gm Tab) 1 gm PO Q6HR [facility] Last Admin: 11/07/21 11:15 Dose: Not Given Review of Systems Cardiovascular: orthopnea, edema, shortness of breath, no chest pain, no palpitations, no rapid/irregular heart beat, no syncope, no lightheadedness Physical Examination Vital Signs Temp Pulse Resp BP Pulse Ox 98.3 F 93 H 16 184/109 93 11/06/21 06:07 11/06/21 06:07 11/06/21 06:07 11/06/21 06:07 11/06/21 06:07 General appearance: no acute distress HEENT: Positive: PERRL Neck: Positive: neck supple Cardiac: Positive: Reg Rate and Rhythm Lungs: Positive: Decreased Breath Sounds Neuro: Positive: Grossly Intact Abdomen: Positive: Soft Female genitourinary: deferred Skin: Positive: Clear Extremities: Present: +1 Edema Results 11/06/21 07:44 11/07/21 04:36 Comprehensive Metabolic Panel 11/07/21 Range/Units 04:36 Sodium 136 L (137-145) mmol/L Potassium 4.8 (3.6-5.0) mmol/L Chloride 100.4 (98-107) mmol/L Carbon Dioxide 21 L (22-30) mmol/L BUN 25 H (7-17) mg/dL Creatinine 2.0 H (0.6-1.2) mg/dL Glucose 105 H (65-100) mg/dL Calcium 8.5 (8.4-10.2) mg/dL EKG interpretations - Telemetry EKG Rhythm: Sinus Rhythm (With nonspecific intraventricular conduction delay, no acute ischemic changes) Assessment and Plan - Patient Problems (1) CHF (congestive heart failure) Current Visit: Yes Status: Acute Qualifiers: Heart failure type: systolic Heart failure chronicity: acute Qualified Code(s): I50.21 - Acute systolic (congestive) heart failure Plan to address problem: 61-year-old woman with coronary artery disease, prior coronary stents, moderate severity ischemic cardiomyopathy. Presents with symptoms of fluid overload and heart failure exacerbation. Continue medical therapy including optimal diu retics. Further ischemic evaluation will depend on clinical course. Patient may not be a candidate for invasive coronary assessment due to acute renal failure.
[2021-11-07 13:20] LABS: Creatinine,Urine 26.4 mg/dL (0.1-20.0)
[2021-11-07] MEDS ORDERED: NON-FORMULARY EACH (Fluticasone/Umeclidin/Vilanter [Trelegy Ellipta 100-62.5-25] 1 EACH Bl IH PRN (14:56)
[2021-11-07] MEDS ORDERED: [UNRECOGNIZED DRUG - OTHER] MC SCH (15:00)
--- NOTE | 2021-11-07 15:38 | Ultrasound Report ---
ULTRASOUND RENAL INDICATION / CLINICAL INFORMATION: Acute renal failure.. COMPARISON: CT abdomen pelvis 08/16/2018. FINDINGS: RIGHT KIDNEY: Length = 10.9 cm. - Echogenicity: Normal. - Parenchymal Thickness: Normal. - Hydronephrosis: None. - Cyst / Mass: None. - Stones: None seen. LEFT KIDNEY: Length = 10.9 cm. - Echogenicity: Normal. - Parenchymal Thickness: Normal. - Hydronephrosis: None. - Cyst / Mass: None. - Stones: None seen. URINARY BLADDER: Not well-visualized. FREE FLUID: None. ADDITIONAL FINDINGS: None. IMPRESSION: 1. No acute sonographic abnormality of the kidneys. Scribed by: Keyanna Bhatti RDMS, GIANFRANCOT, MARGARET Scribed: 11/07/2021 2:23 PM I have reviewed the images, agree with this report, and edited this report as needed. Signer Name: Philipp Beck MD Signed: 11/07/2021 3:34 PM Workstation Name: [facility]
--- NOTE | 2021-11-07 17:30 | Electrocardiograph Report ---
[facility] Test Date: 2021-11-06 Test Time: 06:09:28 Pat Name: RODY AGUILAR Department: Room: A452 Gender: F Heel Former: JONY RAMSAY : 1960 Requested By: BANDAR PAINTING Order Number: [id number] Reading MD: Tyler Sanderson Measurements Intervals [place] Rate: 91 P: 44 OR: 161 QRS: 27 QRSD: 106 T: 120 QT: 427 QTc: 526 Interpretive Statements Sinus rhythm Nonspecific T abnormalities, lateral leads Prolonged QT interval Compared to ECG 07/03/2020 23:21:40 No significant change Electronically Signed On 11-07-2021 17:30:12 EDT by Tyler Sanderson
--- NOTE | 2021-11-07 21:05 | Consultation ---
History of Present Illness - Reason for Consult Consult date: 11/07/21 acute renal failure - History of Present Illness This is a 61-year-old woman with diabetes mellitus type 2, hypertension, jacqueline nary artery disease, congestive heart failure with EF 40% who presented to the emergency department with 3-week history of shortness of breath. She was also noted to have acute kidney injury for which nephrology was consulted. Patient has been seen in our office in the past but denies history of kidney disease. She denies NSAID use. She denies hematuria, dysuria and decreased urine output. Past History Past Medical History: CAD, diabetes, heart failure, hypertension, hyperlipidemia Past Surgical History: , hysterectomy, PTCA Social history: , smoking Family history: diabetes, hypertension Medications and Allergies Allergies Allergy/AdvReac Type Severity Reaction Status Date / Time oxycodone Allergy Itching Verified 11/07/21 11:07 Home Medications Medication Instructions Recorded Confirmed Last Taken Type Aspirin [Adult Aspirin] 81 mg PO QDAY 11/06/21 11/07/21 Unknown History AtorvaSTATin [Lipitor] 80 mg PO QHS 11/06/21 11/07/21 Unknown History Clopidogrel [Plavix] 75 mg PO QDAY 11/06/21 11/07/21 Unknown History Furosemide [Lasix] 40 mg PO QDAY 11/06/21 11/07/21 Unknown History Hydralazine HCl 25 mg PO BID 11/06/21 11/07/21 Unknown History carvediloL [Coreg] 3.125 mg PO BID 11/06/21 11/07/21 Unknown History Acetaminophen/Diphenhydramine 1 each PO QDAY 11/07/21 11/07/21 Unknown History [Tylenol Pm Ex-Strength Caplet] Azelastine HCl 1 spray NS QDAY 11/07/21 11/07/21 Unknown History Flash Glucose Sensor [Freestyle 1 each MC Q14D 11/07/21 11/07/21 Unknown History Ubaldo 2 Sensor] Fluticasone/Umeclidin/Vilanter 1 each IH QDAY PRN 11/07/21 11/07/21 Unknown History [Trelegy Ellipta 100-62.5-25] Insulin Glargine/Lixisenatide 30 units SUB-Q QDAY 11/07/21 11/07/21 Unknown History [Soliqua 100 Unit-33 Mcg/ml Pen] Ubidecarenone [Coq-10] 100 mg PO QDAY 11/07/21 11/07/21 Unknown History Active Meds: Active Medications Acetaminophen (Acetaminophen 325 Mg Tab) 650 mg PO Q4H PRN PRN Reason: Pain MILD(1-3)/Fever >100.5/HURST Last Admin: 11/06/21 23:51 Dose: 650 mg Albuterol (Albuterol 2.5 Mg/3 Ml Nebu) 2.5 mg IH Q4HRT PRN PRN Reason: Shortness Of Breath Aspirin (Aspirin Ec 81 Mg Tab) 81 mg PO QDAY [facility] Last Admin: 11/07/21 09:37 Dose: 81 mg Aspirin (Aspirin Ec 81 Mg Tab) 81 mg PO QDAY [facility] Atorvastatin Calcium (Atorvastatin 40 Mg Tab) 80 mg PO QHS [facility] Carvedilol (Carvedilol 3.125 Mg Tab) 3.125 mg PO BID [facility] Clopidogrel Bisulfate (Clopidogrel 75 Mg Tab) 75 mg PO QDAY [facility] Dextrose (Dextrose 50% In Water (25gm) 50 Ml Syringe) 50 ml IV Q30MIN PRN; Protocol PRN Reason: Hypoglycemia Dicyclomine HCl (Dicyclomine 20 Mg Tab) 20 mg PO QID PRN PRN Reason: pain Famotidine (Famotidine 20 Mg Tab) 20 mg PO DAILY [facility] Last Admin: 11/07/21 09:37 Dose: 20 mg Furosemide (Furosemide 20 Mg/2 Ml Inj) 20 mg IV BID@0600,1800 [facility] Last Admin: 11/07/21 17:25 Dose: 20 mg Hydralazine HCl (Hydralazine 25 Mg Tab) 25 mg PO BID [facility] Hydromorphone HCl (Hydromorphone 0.5 Mg/0.5 Ml Inj) 0.5 mg IV Q13H PRN PRN Reason: Pain , Severe (7-10) Insulin Human Lispro (Insulin Lispro 100 Unit/Ml) 0 unit SUB-Q [facility]; Protocol Last Admin: 11/07/21 17:25 Dose: 2 unit Lisinopril (Lisinopril 10 Mg Tab) 10 mg PO QDAY [facility] Last Admin: 11/07/21 09:37 Dose: Not Given Metoprolol Tartrate (Metoprolol Tartrate 25 Mg Tab) 25 mg PO BID [facility] Last Admin: 11/07/21 09:37 Dose: 25 mg Miscellaneous Medication (Fluticasone/Umeclidin/Vilanter [Trelegy Ellipta 100-62.5-25]) 1 each IH QDAY PRN PRN Reason: Shortness Of Breath Miscellaneous Medication (Insulin Glargine/Lixisenatide [Soliqua 100 Unit-33 Mcg/Ml Pen]) 30 units SUB-Q QDAY [facility] Miscellaneous Medication (Ubidecarenone [Coq-10]) 100 mg PO QDAY [facility] Morphine Sulfate (Morphine 2 Mg/1 Ml Inj) 2 mg IV Q4H PRN PRN Reason: Pain, Moderate (4-6) Ondansetron HCl (Ondansetron 4 Mg/2 Ml Inj) 4 mg IV Q8H PRN PRN Reason: Nausea And Vomiting Sodium Chloride (Sodium Chloride 0.9% 10 Ml Flush Syringe) 10 ml IV BID [facility] Last Admin: 11/07/21 09:38 Dose: 10 ml Sodium Chloride (Sodium Chloride 0.9% 10 Ml Flush Syringe) 10 ml IV PRN PRN PRN Reason: LINE FLUSH Sucralfate (Sucralfate 1 Gm Tab) 1 gm PO Q6HR [facility] Last Admin: 11/07/21 17:22 Dose: Not Given Review of Systems Cardiovascular: orthopnea, edema Exam - Vital Signs Vital signs: Vital Signs Temp Pulse Resp BP Pulse Ox 98.3 F 93 H 16 184/109 93 11/06/21 06:07 11/06/21 06:07 11/06/21 06:07 11/06/21 06:07 11/06/21 06:07 - Physical Exam Narrative exam: Constitutional: no acute distress Head: NC/AT Neck: supple Lungs: clear to auscultation CV: RRR, no M/R/G Abdomen: soft, non-tender, bowel sounds present Back: nontender Extremities: no edema, pulses WNL Skin: intact Neuro: no focal deficits, alert and oriented x4 Results - Lab Results 11/06/21 07:44 11/07/21 04:36 Most recent lab results Calcium 8.5 mg/dL (8.4-10.2) 11/07/21 04:36 Magnesium 1.60 mg/dL (1.7-2.3) L 11/06/21 14:38 Urine Creatinine 26.4 mg/dL (0.1-20.0) H 11/07/21 08:50 Urine Sodium 123 mmol/L 11/07/21 08:50 Assessment and Plan Acute kidney injury on CKD, cr 1.3 2020 Acidosis Essential Hypertension Congestive heart failure exacerbation Check urinalysis, UPCR Continue diuresis Continue antihypertensives Renal ultrasound unremarkable Renally dose medications Avoid nephrotoxins Renal diet Strict I/O
[2021-11-07] MEDS ORDERED: ZOLPIDEM 5 MG TAB PO PRN (21:19)
[2021-11-07] MEDS: ACETAMINOPHEN 325 MG TAB PO PRN (21:42)
[2021-11-07] MEDS ORDERED: ALPRAZolam 0.25 MG TAB PO PRN (21:59)
[2021-11-07] MEDS ORDERED: carvediloL 3.125 MG TAB PO SCH (22:00)
[2021-11-07] MEDS ORDERED: NON-FORMULARY EACH (Hydralazine Hcl [Hydralazine Hcl] 50 MG Tablet) PO SCH (22:00)
[2021-11-07] MEDS ORDERED: hydrALAZINE 25 MG TAB PO SCH (22:00)
[2021-11-08] MEDS: SUCRALFATE 1 GM TAB PO SCH ×2 (00:17→05:33)
[2021-11-08] MEDS: FUROSEMIDE 20 MG/2 ML INJ IV SCH (05:33)
--- NOTE | 2021-11-08 07:25 | Progress Note ---
Assessment and Plan - Patient Problems (1) CHF (congestive heart failure) Current Visit: Yes Status: Acute Qualifiers: Heart failure type: systolic Heart failure chronicity: acute Qualified Code(s): I50.21 - Acute systolic (congestive) heart failure Plan to address problem: 61-year-old woman with coronary artery disease, prior coronary stents in 2018, moderate severity ischemic cardiomyopathy. Presents with symptoms of fluid overload and heart failure exacerbation. Continue medical therapy including optimal diuretics. Further ischemic evaluation will depend on clinical course. Patient may not be a candidate for invasive coronary assessment due to acute renal failure. Subjective Date of service: 11/08/21 Principal diagnosis: Congestive heart failure, acute kidney injury Interval history: Patient is sleepy this morning, but appears to be comfortable laying supine in bed. Shortness of breath has improved and edema is minimal. No chest pain and no new cardiac events reported. Objective Vital Signs Temp Pulse Resp BP Pulse Ox 11/08/21 05:20 97.5 F L 68 16 130/80 94 11/07/21 23:38 97.7 F 66 18 150/78 95 11/07/21 22:25 97 11/07/21 22:00 96 11/07/21 20:11 98.3 F 72 16 149/76 92 11/07/21 10:51 98.0 F 69 20 143/77 95 - Physical Examination General: No Apparent Distress HEENT: Positive: PERRL Neck: Positive: neck supple Cardiac: Positive: Reg Rate and Rhythm Lungs: Positive: clear to auscultation Neuro: Positive: Grossly Intact Abdomen: Positive: Soft Skin: Positive: Clear Extremities: Present: +1 Edema
[2021-11-08] MEDS: INSULIN LISPRO 100 UNIT/ML SUB-Q SCH (07:45)
[2021-11-08 08:44] VITALS: BP 146/70
[2021-11-08] MEDS ORDERED: ASPIRIN EC 81 MG TAB PO SCH (10:00)
[2021-11-08] MEDS ORDERED: UBIDECARENONE 100 MG PO SCH (10:00)
[2021-11-08] MEDS ORDERED: [UNRECOGNIZED DRUG - OTHER] SUB-Q SCH (10:00)
[2021-11-08] MEDS ORDERED: CLOPIDOGREL 75 MG TAB PO SCH (10:00)
--- NOTE | 2021-11-08 10:53 | Discharge Summary ---
Providers - Providers Date of Admission: 11/06/21 11:47 Date of discharge: 11/08/21 Attending physician: MARTIN SANDERS 11/06/21 12:58 Consult to Cardiology [CONS] Routine Consulting Provider: NBA GALLARDO Reason For Exam: chf 11/06/21 13:06 Consult to Physician [CONS] Routine Comment: Consulting Provider: RICHARD GEIGER Physician Instructions: Reason For Exam: cardiorenal syndrome Primary care physician: JOSE DAVIES Hospitalization Reason for admission: Respiratory failure Condition: Fair Hospital course: 61 YO Female with Obesity Hypoventilation Syndrome, Systolic CHF(EF 40%), CAD S/P Stent Placement, HLD, DM, HTN, Metabolic Syndrome, Nicotine Dependence presents to ED for evaluation of shortness of breath, leg edema, decreased exercise tolerance, dyspnea on exertion, dyspnea at rest, orthopnea, paroxysmal nocturnal dyspnea, as well as 10 pound unintentional weight gain. Patient found to have a pulse oximetry of 87% on room air which is consistent with acute hypoxemic respiratory failure. The patient was admitted with diagnosis below: Acute hypoxic respiratory failure Acute systolic heart failure. EF 35-40%. Pulmonary hypertension Cardiorenal syndrome Acute on CKD Hypertensive urgency Hospital course: 11/07/2021. Echocardiogram reveals left ventricle mildly dilated with systolic function moderately decreased and LVEF 35-40%. Mild concentric left ventricular hypertrophy. Mild pulmonary hypertension with RVSP 40-45 mmHg. Patient's creatinine appears to be elevated to 2.0 up from baseline of 1.4 (06/2020). Continue beta-jason and diuresis. Nephrology and cardiology consulted 11/08/2021. Renal US was found to be negative. Patient was to have further follow-up with creatinine check/BMP. Cardiology continued with medical therapy including optimal diuretics. However, patient decided to leave AMA before completion of hospital course. Dedicated discharge time 32 minutes Disposition: LEFT AGAINST MEDICAL ADVICE Final Discharge Diagnosis (Prints w/discharge instructions): Acute hypoxic respiratory failure. Acute systolic heart failure. EF 35-40%. Pulmonary hypertension. Cardiorenal syndrome. Acute on CKD. Hypertensive urgency Core Measure Documentation - Palliative Care Palliative Care/ Comfort Measures: Not Applicable - Core Measures Any of the following diagnoses?: none Exam - Constitutional Vitals: Temp Pulse Resp BP Pulse Ox 97.7 F 44 L 18 146/70 93 11/08/21 07:32 11/08/21 07:32 11/08/21 07:32 11/08/21 07:32 11/08/21 07:32 General appearance: Present: no acute distress, well-nourished - EENT Eyes: Present: PERRL ENT: hearing intact, clear oral mucosa - Neck Neck: Present: supple, normal ROM - Respiratory Respiratory effort: normal Respiratory: bilateral: CTA - Cardiovascular Heart Sounds: Present: S1 & S2. Absent: rub, click - Extremities Extremities: pulses symmetrical, No edema Peripheral Pulses: within normal limits - Abdominal General gastrointestinal: Present: soft, non-tender, non-distended, normal bowel sounds Female genitourinary: Present: normal - Integumentary Integumentary: Present: clear, warm, dry - Musculoskeletal Musculoskeletal: gait normal, strength equal bilaterally - Psychiatric Psychiatric: appropriate mood/affect, intact judgment & insight - Neurologic Neurologic: CNII-XII intact, moves all extremities Plan Follow up with: JOSE DAVIES MD [Primary Care Provider] - 7 Days Forms: AMA Form
== END 2021-11-08 11:09 | disposition left against medical advice (07) | DRG 291 ==
LOC: ED 05:46 → 4A 11:47
PROVIDERS: ADMIT Internal Medicine; ATTEND Hospitalist
DX: I13.0 Hypertensive heart and chronic kidney disease with heart failure and stage 1 through stage 4 chronic kidney disease, or unspecified chronic kidney disease (principal); I50.21 Acute systolic (congestive) heart failure; J96.01 Acute respiratory failure with hypoxia; N17.9 Acute kidney failure, unspecified; E78.5 Hyperlipidemia, unspecified; N18.9 Chronic kidney disease, unspecified; I25.10 Atherosclerotic heart disease of native coronary artery without angina pectoris; D63.1 Anemia in chronic kidney disease; I16.0 Hypertensive urgency; Z83.3 Family history of diabetes mellitus; Z90.710 Acquired absence of both cervix and uterus; Z82.49 Family history of ischemic heart disease and other diseases of the circulatory system
CPT/HCPCS: 36415; 71045; 76770; 80048; 82550; 82553; 82570; 82962; 83735; 83880; 84300; 84439; 84443; 84484; 85025; 93005; 93306; 94644; 96374; 96375; 99285; G0378; Q9967; C8929; J1815; J1940